=== PATIENT | male | born 1965 | race Caucasian/White ===

== ENCOUNTER 2018-10-23 09:29 | Inpatient (IN) | payer OTHER ==
[~2018-10-23] VITALS: Ht 177.8 cm; Wt 100.2 kg
--- NOTE | 2018-10-23 10:13 | NUR ---
PT IS FLIGHT ATTENDENT. PT STATES HE "FLEW TO [place], HAVING PAIN ON RIGHT SIDE AND RADIATES TO THE BACK, YELLOW IN THE EYES, AND ITCHY" MD IS AT BEDSIDE HIV POSITIVE AND ON MEDICATION, HX OF IBS
[2018-10-23 10:35] LABS: ALANINE AMINOTRANSFERASE 497 U/L (12-78); ALBUMIN 3.9 g/dL (3.4-5.0); ANION GAP 9 mmol/L (5-15); CHLORIDE 106 mmol/L (98-107); CREATININE 0.97 mg/dL (0.7-1.3)
[2018-10-23 10:36] LABS: BASOPHILS # (AUTO) 0.08 x10^3/uL (0-0.1); BASOPHILS % (AUTO) 1 % (0-1); EOSINOPHILS # (AUTO) 0.04 x10^3/uL (0-0.4); EOSINOPHILS % (AUTO) 1 % (1-7); LYMPHOCYTES # (AUTO) 1.86 x10^3/uL (1-3.4); LYMPHOCYTES % (AUTO) 21 % (22-44); MD NO; MEAN CORPUSCULAR HGB CONC 33.4 g/dL (33.2-36.2); MEAN CORPUSCULAR VOLUME 95.9 fL (81-97); MEAN PLATELET VOLUME 10.3 fL (7.4-10.4); MONOCYTES # (AUTO) 0.45 x10^3/uL (0.2-0.8); MONOCYTES % (AUTO) 5 % (2-9); NEUTROPHILS # (AUTO) 6.27 x10^3/uL (1.8-6.8); NEUTROPHILS % (AUTO) 72 % (42-75); PLATELET COUNT 299 x10^3/uL (130-400); RED BLOOD COUNT 5.01 x10^6/uL (4.38-5.82); RED CELL DISTRIBUTION WIDTH 13.3 % (9.4-14.8)
[2018-10-23 10:37] LABS: ALKALINE PHOSPHATASE 260 U/L (45-117); BILIRUBIN,TOTAL 3.9 mg/dL (0.2-1.0); TOTAL PROTEIN 8.6 g/dL (6.4-8.2)
[2018-10-23 10:53] LABS: MICROSCOPIC AUTO
[2018-10-23 10:54] LABS: CULTURE INDICATED? YES
--- NOTE | 2018-10-23 10:58 | NUR ---
Patient given discharge instructions and they have confirmed that they understand the instructions. Patient ambulatory with steady gait. Pt in stable condition, appropriate for dc. vss. nad.
[2018-10-23] MEDS ORDERED: TRAZ-137 PO (11:32)
[2018-10-23] MEDS ORDERED: BICT1TAB PO (11:32)
[2018-10-23] MEDS ORDERED: ESCI10TA PO (11:32)
[2018-10-23] MEDS ORDERED: METO-93 PO (11:32)
--- NOTE | 2018-10-23 12:04 | NUR ---
gave report to Lee. vs stable. pt ready for transfer
[2018-10-23] MEDS ORDERED: ONDANSETRON 2MG/ML, 2ML IVPush PRN (14:00)
[2018-10-23] MEDS ORDERED: ONDANSETRON ODT 4 MG PO PRN (14:00)
[2018-10-23] MEDS ORDERED: DOCUSATE 100 MG CAPSULE PO PRN (14:00)
[2018-10-23 14:10] VITALS: BP 171/82
[2018-10-23] MEDS: SODIUM CHLORIDE 0.9% 1,000 ML IV SCH (16:00)
[2018-10-23] MEDS ORDERED: DIPHENHYDRAMINE 50 MG/ML, 1ML IVPush PRN (16:30)
[2018-10-23] MEDS ORDERED: DIPHENHYDRAMINE 25 MG CAPSULE PO PRN (16:30)
[2018-10-23] MEDS: CIPROFLOXACIN/PMX 400MG/200ML 200 ML IV SCH (16:39)
[2018-10-23 16:55] VITALS: BP 166/89
[2018-10-23] MEDS: METRONIDAZOLE PMX 500MG/100ML 100 ML IV SCH (17:54)
[2018-10-23 20:37] VITALS: BP 150/83
[2018-10-24 00:53] VITALS: BP 149/85
[2018-10-24] MEDS: METRONIDAZOLE PMX 500MG/100ML 100 ML IV SCH ×3 (01:48→18:27)
[2018-10-24] MEDS: SODIUM CHLORIDE 0.9% 1,000 ML IV SCH ×2 (02:59→20:12)
[2018-10-24] MEDS: CIPROFLOXACIN/PMX 400MG/200ML 200 ML IV SCH ×2 (04:09→16:28)
[2018-10-24 05:33] LABS: BASOPHILS # (AUTO) 0.04 x10^3/uL (0-0.1); BASOPHILS % (AUTO) 1 % (0-1); EOSINOPHILS % (AUTO) 1 % (1-7); LYMPHOCYTES # (AUTO) 1.71 x10^3/uL (1-3.4); LYMPHOCYTES % (AUTO) 24 % (22-44); MD NO; MEAN CORPUSCULAR HEMOGLOBIN 32.4 pg (27.5-34.5); MEAN CORPUSCULAR HGB CONC 33.6 g/dL (33.2-36.2); MEAN CORPUSCULAR VOLUME 96.3 fL (81-97); MEAN PLATELET VOLUME 10.8 fL (7.4-10.4); MONOCYTES # (AUTO) 0.42 x10^3/uL (0.2-0.8); MONOCYTES % (AUTO) 6 % (2-9); NEUTROPHILS # (AUTO) 4.93 x10^3/uL (1.8-6.8); NEUTROPHILS % (AUTO) 69 % (42-75); PLATELET COUNT 253 x10^3/uL (130-400); RED BLOOD COUNT 4.38 x10^6/uL (4.38-5.82); RED CELL DISTRIBUTION WIDTH 13.4 % (9.4-14.8)
[2018-10-24 05:34] LABS: INTERNATIONAL NORMALIZED RATIO 1.01 (0.93-1.1); PROTHROMBIN TIME 10.6 Seconds (9.6-11.5)
[2018-10-24 05:43] LABS: CHLORIDE 106 mmol/L (98-107)
[2018-10-24 05:51] LABS: ALANINE AMINOTRANSFERASE 608 U/L (12-78); ALBUMIN 3.2 g/dL (3.4-5.0); ALKALINE PHOSPHATASE 210 U/L (45-117); ANION GAP 3 mmol/L (5-15); BILIRUBIN,TOTAL 4.4 mg/dL (0.2-1.0); CALCIUM 8.6 mg/dL (8.5-10.1); CREATININE 0.89 mg/dL (0.7-1.3); TOTAL PROTEIN 7.2 g/dL (6.4-8.2)
[2018-10-24] MEDS ORDERED: METOPROLOL SUCCINATE 50 MG TAB.ER.24H PO SCH (06:00)
[2018-10-24 07:28] VITALS: BP 162/82
[2018-10-24] MEDS ORDERED: BICTEGRAV/EMTRICIT/TENOFOV ALA TAB PO SCH (09:00)
[2018-10-24] MEDS ORDERED: hydrALAzine 20 MG/ML, 1ML IV PRN (10:00)
[2018-10-24] MEDS ORDERED: FENTANYL PF 100 MCG/2ML IV PRN (10:00)
[2018-10-24] MEDS ORDERED: METOPROLOL 1 MG/ML, 5ML IV PRN (10:00)
[2018-10-24] MEDS ORDERED: LABETALOL 5MG/ML, 20ML IV PRN (10:00)
[2018-10-24] MEDS ORDERED: MIDAZOLAM 1 MG/ML, 2ML ONE (11:00)
[2018-10-24] MEDS ORDERED: FENTANYL PF 100 MCG/2ML ONE ×2 (11:00→11:15)
[2018-10-24] MEDS ORDERED: DEXAMETHASONE 4 MG/ML, 1ML ONE ×2 (11:15→11:49)
[2018-10-24] MEDS ORDERED: PROPOFOL 10 MG/ML, 20ML ONE ×2 (11:15→11:49)
[2018-10-24] MEDS ORDERED: ROCURONIUM 10MG/ML,5ML ONE ×2 (11:15→11:49)
[2018-10-24] MEDS ORDERED: SUCCINYLCHOLINE 20 MG/ML, 10ML ONE ×2 (11:15→11:49)
[2018-10-24] MEDS ORDERED: ONDANSETRON 2MG/ML, 2ML ONE ×2 (11:15→11:49)
[2018-10-24] MEDS ORDERED: MIDAZOLAM 1 MG/ML, 5ML ONE (11:15)
[2018-10-24] MEDS ORDERED: OMNIPAQUE 350 MG/ML, 50 ML BOTTLE ONE (11:25)
[2018-10-24] MEDS ORDERED: GLYCOPYRROLATE 0.2MG/1ML, 5ML ONE (11:49)
[2018-10-24] MEDS ORDERED: NEOSTIGMINE 1 MG/ML, 10ML ONE (11:49)
[2018-10-24] MEDS ORDERED: CEFAZOLIN 1,000 MG ONE (11:49)
[2018-10-24] MEDS ORDERED: MEPERIDINE/PF 25MG/ML,1ML ONE (12:22)
[2018-10-24] MEDS ORDERED: MEPERIDINE/PF 25MG/0.5ML IVPush PRN (12:30)
[2018-10-24 13:17] VITALS: BP 139/85
[2018-10-24 14:06] VITALS: BP 148/77
[2018-10-24 19:19] VITALS: BP 156/86
[2018-10-24] MEDS: BICTEGRAV/EMTRICIT/TENOFOV ALA TAB PO SCH (21:31)
[2018-10-24] MEDS: MORPHINE SULFATE 4 MG/ML, 1ML IVPush PRN (21:31)
[2018-10-24] MEDS: METOPROLOL SUCCINATE 50 MG TAB.ER.24H PO SCH (21:31)
[2018-10-25] MEDS: METRONIDAZOLE PMX 500MG/100ML 100 ML IV SCH ×3 (02:17→21:48)
[2018-10-25 02:20] VITALS: BP 147/80
[2018-10-25] MEDS: MORPHINE SULFATE 4 MG/ML, 1ML IVPush PRN ×3 (02:25→20:13)
[2018-10-25] MEDS: SODIUM CHLORIDE 0.9% 1,000 ML IV SCH ×2 (04:31→11:15)
[2018-10-25] MEDS: CIPROFLOXACIN/PMX 400MG/200ML 200 ML IV SCH ×2 (04:32→23:00)
[2018-10-25 05:37] LABS: BASOPHILS # (AUTO) 0.05 x10^3/uL (0-0.1); BASOPHILS % (AUTO) 1 % (0-1); EOSINOPHILS # (AUTO) 0.11 x10^3/uL (0-0.4); EOSINOPHILS % (AUTO) 1 % (1-7); LYMPHOCYTES # (AUTO) 2.91 x10^3/uL (1-3.4); LYMPHOCYTES % (AUTO) 27 % (22-44); MD NO; MEAN CORPUSCULAR HEMOGLOBIN 33.1 pg (27.5-34.5); MEAN CORPUSCULAR VOLUME 97.6 fL (81-97); MEAN PLATELET VOLUME 10.8 fL (7.4-10.4); MONOCYTES # (AUTO) 0.51 x10^3/uL (0.2-0.8); MONOCYTES % (AUTO) 5 % (2-9); NEUTROPHILS # (AUTO) 7.11 x10^3/uL (1.8-6.8); NEUTROPHILS % (AUTO) 67 % (42-75); PLATELET COUNT 299 x10^3/uL (130-400); RED BLOOD COUNT 4.64 x10^6/uL (4.38-5.82); RED CELL DISTRIBUTION WIDTH 13.1 % (9.4-14.8)
[2018-10-25 05:46] LABS: CHLORIDE 105 mmol/L (98-107)
[2018-10-25 05:53] LABS: ALANINE AMINOTRANSFERASE 696 U/L (12-78); ALBUMIN 3.4 g/dL (3.4-5.0); ALKALINE PHOSPHATASE 186 U/L (45-117); ANION GAP 8 mmol/L (5-15); BILIRUBIN,TOTAL 2.4 mg/dL (0.2-1.0); CALCIUM 8.7 mg/dL (8.5-10.1); CREATININE 0.94 mg/dL (0.7-1.3); TOTAL PROTEIN 7.3 g/dL (6.4-8.2)
[2018-10-25 08:30] VITALS: BP 168/78
[2018-10-25] MEDS ORDERED: BUPIVACAINE/PF 0.5% ONE ×2 (12:42→16:21)
[2018-10-25] MEDS ORDERED: EPINEPHRINE 1 MG/ML, 1ML ONE ×2 (12:42→16:21)
[2018-10-25 12:45] VITALS: BP 116/65
[2018-10-25 14:30] VITALS: BP_SYST 157; BP_SYST 197; BP_DIAS 80
[2018-10-25] MEDS ORDERED: MIDAZOLAM 1 MG/ML, 2ML ONE (16:25)
[2018-10-25] MEDS ORDERED: FENTANYL PF 250 MCG/5ML ONE (16:25)
[2018-10-25] MEDS ORDERED: CEFOTETAN PMX 2GM/50ML 50 ML ONE (16:27)
[2018-10-25] MEDS ORDERED: ROCURONIUM 10MG/ML,5ML ONE (16:30)
[2018-10-25] MEDS ORDERED: SUCCINYLCHOLINE 20 MG/ML, 10ML ONE (16:30)
[2018-10-25] MEDS ORDERED: CEFAZOLIN 1,000 MG ONE (16:30)
[2018-10-25] MEDS ORDERED: PROPOFOL 10 MG/ML, 20ML ONE (16:30)
[2018-10-25] MEDS ORDERED: NEOSTIGMINE 1 MG/ML, 10ML ONE (16:30)
[2018-10-25] MEDS ORDERED: GLYCOPYRROLATE 0.2MG/1ML, 5ML ONE (16:30)
[2018-10-25] MEDS ORDERED: ONDANSETRON ODT 8 MG PO PRN (17:00)
[2018-10-25] MEDS ORDERED: hydrALAzine 20 MG/ML, 1ML IV PRN (17:00)
[2018-10-25] MEDS ORDERED: MORPHINE SULFATE 4 MG/ML, 1ML IVPush PRN ×2 (17:00→21:00)
[2018-10-25] MEDS ORDERED: PROMETHAZINE 25 MG SUPP PR PRN (17:00)
[2018-10-25] MEDS ORDERED: PROMETHAZINE 25 MG/ML, 1ML IM PRN ×2 (17:00)
[2018-10-25] MEDS ORDERED: ONDANSETRON 2MG/ML, 2ML IV PRN (17:00)
[2018-10-25] MEDS ORDERED: FENTANYL PF 100 MCG/2ML IV PRN (17:00)
[2018-10-25] MEDS ORDERED: PROMETHAZINE 12.5 MG SUPP PR PRN (17:00)
[2018-10-25] MEDS ORDERED: PROMETHAZINE 25 MG/ML, 1ML IV PRN (17:00)
[2018-10-25] MEDS ORDERED: LABETALOL 5MG/ML, 20ML IV PRN (17:00)
[2018-10-25] MEDS ORDERED: MEPERIDINE/PF 25MG/0.5ML IVPush PRN (17:00)
[2018-10-25] MEDS ORDERED: OXYcodone 5 MG/5 ML ORAL.SOL UDC PO PRN (17:00)
[2018-10-25] MEDS ORDERED: HYDROmorphone 2 MG/ML, 1ML IVPush PRN (17:00)
[2018-10-25] MEDS ORDERED: FENTANYL PF 100 MCG/2ML ONE ×2 (17:18→17:39)
[2018-10-25] MEDS ORDERED: BUPIVACAINE/PF-EPI 0.5% 1:200K INFIL ONE (17:20)
[2018-10-25] MEDS ORDERED: OXYcodone 5 MG/5 ML ORAL.SOL UDC ONE (18:09)
[2018-10-25] MEDS ORDERED: MEPERIDINE/PF 25MG/ML,1ML ONE (18:09)
[2018-10-25] MEDS ORDERED: hydrALAzine 20 MG/ML, 1ML ONE (18:23)
[2018-10-25 19:45] VITALS: BP 158/70
[2018-10-25] MEDS ORDERED: LACTATED RINGERS 1,000 ML IV SCH (21:00)
[2018-10-25] MEDS: BICTEGRAV/EMTRICIT/TENOFOV ALA TAB PO SCH (21:42)
[2018-10-25] MEDS: METOPROLOL SUCCINATE 50 MG TAB.ER.24H PO SCH (21:42)
[2018-10-25] MEDS: OXYcodone/APAP 5/325MG TABLET PO PRN (22:25)
[2018-10-26 00:35] VITALS: BP 135/78
[2018-10-26] MEDS: SODIUM CHLORIDE 0.9% 1,000 ML IV SCH ×3 (02:27→12:00)
[2018-10-26 04:12] VITALS: BP 125/79
[2018-10-26 04:41] LABS: BASOPHILS # (AUTO) 0.17 x10^3/uL (0-0.1); BASOPHILS % (AUTO) 2 % (0-1); EOSINOPHILS # (AUTO) 0.07 x10^3/uL (0-0.4); EOSINOPHILS % (AUTO) 1 % (1-7); LYMPHOCYTES # (AUTO) 1.91 x10^3/uL (1-3.4); LYMPHOCYTES % (AUTO) 18 % (22-44); MD NO; MEAN CORPUSCULAR HEMOGLOBIN 32.2 pg (27.5-34.5); MEAN CORPUSCULAR HGB CONC 33.3 g/dL (33.2-36.2); MEAN CORPUSCULAR VOLUME 96.8 fL (81-97); MEAN PLATELET VOLUME 10.5 fL (7.4-10.4); MONOCYTES # (AUTO) 0.62 x10^3/uL (0.2-0.8); MONOCYTES % (AUTO) 6 % (2-9); NEUTROPHILS # (AUTO) 7.63 x10^3/uL (1.8-6.8); NEUTROPHILS % (AUTO) 73 % (42-75); PLATELET COUNT 320 x10^3/uL (130-400); RED BLOOD COUNT 4.69 x10^6/uL (4.38-5.82); RED CELL DISTRIBUTION WIDTH 13.2 % (9.4-14.8)
[2018-10-26 04:51] LABS: ALBUMIN 3.5 g/dL (3.4-5.0); ANION GAP 5 mmol/L (5-15); CALCIUM 8.9 mg/dL (8.5-10.1); CHLORIDE 102 mmol/L (98-107)
[2018-10-26 04:56] LABS: ALANINE AMINOTRANSFERASE 667 U/L (12-78); ALKALINE PHOSPHATASE 168 U/L (45-117); BILIRUBIN,TOTAL 2.3 mg/dL (0.2-1.0); CREATININE 0.95 mg/dL (0.7-1.3); TOTAL PROTEIN 7.5 g/dL (6.4-8.2)
[2018-10-26] MEDS: METRONIDAZOLE PMX 500MG/100ML 100 ML IV SCH (04:59)
[2018-10-26 07:15] VITALS: BP 136/69
[2018-10-26] MEDS: OXYcodone/APAP 5/325MG TABLET PO PRN ×2 (07:34→12:21)
[2018-10-26] MEDS: CIPROFLOXACIN/PMX 400MG/200ML 200 ML IV SCH (11:04)
[2018-10-26] MEDS ORDERED: OXYC5TAB3 PO (11:16)
[2018-10-26] MEDS ORDERED: METR-90 PO (11:16)
[2018-10-26] MEDS ORDERED: CIPR500T3 PO (11:16)
== END 2018-10-26 12:50 | disposition home or self-care (01) | DRG 417 ==
LOC: ED 11:31 → EDIP 11:32 → ED 11:46 → 4NOR 13:34 → DCLOUNGE 10-26 12:27
PROVIDERS: ADMIT Internal Medicine; ATTEND Internal Medicine
PROC: 0FC98ZZ Extirpation of Matter from Common Bile Duct, Via Natural or Artificial Opening Endoscopic (ICD-10-PCS; 2018-10-24)
PROC: BF131ZZ Fluoroscopy of Gallbladder and Bile Ducts using Low Osmolar Contrast (ICD-10-PCS; 2018-10-24)
PROC: 0DB98ZX Excision of Duodenum, Via Natural or Artificial Opening Endoscopic, Diagnostic (ICD-10-PCS; 2018-10-24)
PROC: 0DB78ZX Excision of Stomach, Pylorus, Via Natural or Artificial Opening Endoscopic, Diagnostic (ICD-10-PCS; 2018-10-24)
PROC: 0FT44ZZ Resection of Gallbladder, Percutaneous Endoscopic Approach (ICD-10-PCS; principal; 2018-10-25 17:30)
DX: K80.63 Calculus of gallbladder and bile duct with acute cholecystitis with obstruction (principal); K85.10 Biliary acute pancreatitis without necrosis or infection; B20 Human immunodeficiency virus [HIV] disease; F17.200 Nicotine dependence, unspecified, uncomplicated; I10 Essential (primary) hypertension; K29.50 Unspecified chronic gastritis without bleeding; K29.80 Duodenitis without bleeding; K58.9 Irritable bowel syndrome, unspecified; K76.0 Fatty (change of) liver, not elsewhere classified; L29.9 Pruritus, unspecified; Z80.0 Family history of malignant neoplasm of digestive organs; Z82.49 Family history of ischemic heart disease and other diseases of the circulatory system; Z79.899 Other long term (current) drug therapy
CPT/HCPCS: 36415; 74328; 99285; S0020; 74181; 76700; 80053; 80074; 81001; 83690; 85025; 85610; 87086; 88304; 88305; 93005; G0378; J0171; J0690; J0744; J1100; J2175; J2250; J2405; J2704; J2710; J3010; Q9967; C1769; J0330; J0360; J2270; J3490; J7030; Q0163